=== PATIENT | female | born 1955 | race Caucasian/White ===

== ENCOUNTER → 2023-01-14 | Outpatient (CLI) | payer MEDICARE ==
[2023-01-14 08:43] LABS: BASO % 0.7 % (0.0-1.0); EOS # 0.1 10^3/uL (0.0-0.5); EOS % 1.9 % (0.0-3.0); HEMATOCRIT 36.8 % (36.0-47.0); HEMOGLOBIN 11.6 g/dl (12.0-15.5); LYMPH # 1.1 10^3/uL (1.5-5.0); LYMPH % 18.5 % (24.0-44.0); MEAN CORPUSCULAR HEMOGLOBIN 28.9 pg (27.0-33.0); MEAN CORPUSCULAR HGB CONC 31.5 g/dl (32.0-36.5); MEAN CORPUSCULAR VOLUME 91.8 fl (80.0-96.0); MONO # 0.7 10^3/uL (0.0-0.8); MONO % 11.6 % (2.0-8.0); NEUTROPHILS # 3.8 10^3/uL (1.5-8.5); NEUTROPHILS % 66.3 % (36.0-66.0); PLATELET COUNT, AUTOMATED 172 10^3/uL (150-450); RED BLOOD COUNT 4.01 10^6/uL (4.00-5.40); WHITE BLOOD COUNT 5.8 10^3/uL (4.0-10.0)
[2023-01-14 09:02] LABS: ALBUMIN 3.6 G/DL (3.2-5.2); ALKALINE PHOSPHATASE 197 U/L (46-116); ALT/SGPT 80 U/L (7.0-40); AST/SGOT 43 U/L (<34); BILIRUBIN,TOTAL 0.3 MG/DL (0.3-1.2); BLOOD UREA NITROGEN 11 MG/DL (9-23); CARBON DIOXIDE LEVEL 25 MMOL/L (20-31); CHLORIDE LEVEL 107 MMOL/L (98-107); CREATININE FOR GFR 0.71 MG/DL (0.55-1.30); GLOMERULAR FILTRATION RATE > 60.0 (>45); GLUCOSE, FASTING 121 MG/DL (74-106); POTASSIUM SERUM 4.7 MMOL/L (3.5-5.1); SODIUM LEVEL 138 MMOL/L (136-145); TOTAL PROTEIN 6.5 G/DL (5.7-8.2)
== END ==
LOC: M LAB 07:36
DX: C25.9 Malignant neoplasm of pancreas, unspecified (principal)

== ENCOUNTER 2023-01-28 08:00 | Outpatient (CLI) | payer MEDICARE ==
[~2023-01-28] VITALS: Ht 165.1 cm; Wt 77.3 kg
[~2023-01-28 08:00] MED LIST: SODIUM CHLORIDE 0.9% INJ 10 ML SYR IV PRN
[2023-01-28 08:22] VITALS: BP 170/91
[2023-01-28 08:28] LABS: HEMATOCRIT 31.8 % (36.0-47.0); HEMOGLOBIN 10.3 g/dl (12.0-15.5); MEAN CORPUSCULAR HEMOGLOBIN 29.1 pg (27.0-33.0); MEAN CORPUSCULAR HGB CONC 32.4 g/dl (32.0-36.5); MEAN CORPUSCULAR VOLUME 89.8 fl (80.0-96.0); PLATELET COUNT, AUTOMATED 150 10^3/uL (150-450); RED BLOOD COUNT 3.54 10^6/uL (4.00-5.40); WHITE BLOOD COUNT 2.7 10^3/uL (4.0-10.0)
[2023-01-28] MEDS ORDERED: SODIUM CHLORIDE 0.9% INJ 10 ML SYR IV SCH (09:00)
[2023-01-28 09:05] LABS: ALBUMIN 3.4 G/DL (3.2-5.2); ALKALINE PHOSPHATASE 175 U/L (46-116); ALT/SGPT 57 U/L (7.0-40); AST/SGOT 31 U/L (<34); BILIRUBIN,TOTAL 0.4 MG/DL (0.3-1.2); BLOOD UREA NITROGEN 10 MG/DL (9-23); CALCIUM LEVEL 8.7 MG/DL (8.3-10.6); CARBON DIOXIDE LEVEL 24 MMOL/L (20-31); CHLORIDE LEVEL 107 MMOL/L (98-107); CREATININE FOR GFR 0.64 MG/DL (0.55-1.30); GLOMERULAR FILTRATION RATE > 60.0 (>45); GLUCOSE, FASTING 118 MG/DL (74-106); SODIUM LEVEL 140 MMOL/L (136-145); TOTAL PROTEIN 5.9 G/DL (5.7-8.2)
[2023-01-28 14:30] LABS: BASO % 1.1 % (0.0-1.0); EOS # 0.1 10^3/uL (0.0-0.5); EOS % 2.7 % (0.0-3.0); LYMPH # 0.5 10^3/uL (1.5-5.0); LYMPH % 19.8 % (24.0-44.0); MONO # 0.5 10^3/uL (0.0-0.8); MONO % 17.9 % (2.0-8.0); NEUTROPHILS # 1.5 10^3/uL (1.5-8.5); NEUTROPHILS % 58.1 % (36.0-66.0)
== END 2023-01-28 08:20 | disposition home or self-care (01) ==
LOC: M INFU 08:00
PROVIDERS: ATTEND Physician Assistant
DX: C25.9 Malignant neoplasm of pancreas, unspecified (principal)

== ENCOUNTER 2023-02-01 07:15 | Outpatient (CLI) | payer MEDICARE ==
[~2023-02-01] VITALS: Ht 157.5 cm; Wt 80.0 kg
[2023-02-01 07:15] VITALS: BP 157/88
[2023-02-01] MEDS ORDERED: FILGRASTIM-SNDZ 300MCG 0.5ML SYR (ZARXIO)**SC ADMINISTRATION ONLY SC ONE (07:30)
== END 2023-02-01 07:40 | disposition home or self-care (01) ==
LOC: M INFU 07:15
PROVIDERS: ATTEND Physician Assistant
DX: C25.9 Malignant neoplasm of pancreas, unspecified (principal); D70.8 Other neutropenia
CPT/HCPCS: 96372; Q5101

== ENCOUNTER 2023-02-08 07:35 | Outpatient (CLI) | payer MEDICARE ==
[~2023-02-08] VITALS: Ht 152.4 cm; Wt 77.3 kg
[2023-02-08 07:35] VITALS: BP 142/80
[~2023-02-08 07:35] MED LIST changes: -SODIUM CHLORIDE 0.9% INJ 10 ML SYR IV PRN; +SODIUM CHLORIDE 0.9% INJ 10 ML SYR XX ONE
[2023-02-08 08:03] LABS: HEMOGLOBIN 10.9 g/dl (12.0-15.5); MEAN CORPUSCULAR HEMOGLOBIN 28.5 pg (27.0-33.0); MEAN CORPUSCULAR HGB CONC 32.1 g/dl (32.0-36.5); MEAN CORPUSCULAR VOLUME 88.8 fl (80.0-96.0); PLATELET COUNT, AUTOMATED 147 10^3/uL (150-450); RED BLOOD COUNT 3.83 10^6/uL (4.00-5.40); WHITE BLOOD COUNT 3.5 10^3/uL (4.0-10.0)
[2023-02-08 08:24] LABS: ALBUMIN 3.5 G/DL (3.2-5.2); ALKALINE PHOSPHATASE 185 U/L (46-116); ALT/SGPT 70 U/L (7.0-40); AST/SGOT 40 U/L (<34); BILIRUBIN,TOTAL 0.5 MG/DL (0.3-1.2); BLOOD UREA NITROGEN 12 MG/DL (9-23); CALCIUM LEVEL 9.2 MG/DL (8.3-10.6); CARBON DIOXIDE LEVEL 25 MMOL/L (20-31); CHLORIDE LEVEL 106 MMOL/L (98-107); CREATININE FOR GFR 0.68 MG/DL (0.55-1.30); GLOMERULAR FILTRATION RATE > 60.0 (>45); GLUCOSE, FASTING 126 MG/DL (74-106); POTASSIUM SERUM 4.1 MMOL/L (3.5-5.1); SODIUM LEVEL 138 MMOL/L (136-145)
[2023-02-08 09:14] LABS: CA19-9 TUMOR MARKER,CARBOHYDRA 6521.5 U/ML (<35.0)
[2023-02-08 10:35] LABS: BASO % 0.6 % (0.0-1.0); EOS # 0.1 10^3/uL (0.0-0.5); EOS % 1.4 % (0.0-3.0); LYMPH # 0.6 10^3/uL (1.5-5.0); LYMPH % 16.1 % (24.0-44.0); MONO # 0.6 10^3/uL (0.0-0.8); MONO % 17.6 % (2.0-8.0); NEUTROPHILS # 2.1 10^3/uL (1.5-8.5); NEUTROPHILS % 60.3 % (36.0-66.0)
== END 2023-02-08 07:40 | disposition home or self-care (01) ==
LOC: M INFU 07:35
PROVIDERS: ATTEND Physician Assistant
DX: C25.9 Malignant neoplasm of pancreas, unspecified (principal)

== ENCOUNTER 2023-03-01 08:13 | Outpatient (CLI) | payer MEDICARE ==
[~2023-03-01] VITALS: Ht 147.3 cm; Wt 80.0 kg
[~2023-03-01 08:13] MED LIST changes: +FILGRASTIM-SNDZ 300MCG 0.5ML SYR (ZARXIO)**SC ADMINISTRATION ONLY SC ONE; +SODIUM CHLORIDE 0.9% INJ 10 ML SYR IV PRN; -SODIUM CHLORIDE 0.9% INJ 10 ML SYR XX ONE
[2023-03-01 09:00] VITALS: BP 187/99; O2SAT 98
[2023-03-01] MEDS ORDERED: SODIUM CHLORIDE 0.9% INJ 10 ML SYR IV SCH (09:00)
[2023-03-01 09:14] LABS: HEMATOCRIT 33.8 % (36.0-47.0); HEMOGLOBIN 10.5 g/dl (12.0-15.5); MEAN CORPUSCULAR HEMOGLOBIN 27.9 pg (27.0-33.0); MEAN CORPUSCULAR HGB CONC 31.1 g/dl (32.0-36.5); MEAN CORPUSCULAR VOLUME 89.7 fl (80.0-96.0); PLATELET COUNT, AUTOMATED 143 10^3/uL (150-450); RED BLOOD COUNT 3.77 10^6/uL (4.00-5.40); WHITE BLOOD COUNT 1.9 10^3/uL (4.0-10.0)
[2023-03-01 09:33] LABS: ALBUMIN 3.5 G/DL (3.2-5.2); ALKALINE PHOSPHATASE 181 U/L (46-116); ALT/SGPT 40 U/L (7.0-40); AST/SGOT 33 U/L (<34); BILIRUBIN,TOTAL 0.4 MG/DL (0.3-1.2); BLOOD UREA NITROGEN 10 MG/DL (9-23); CALCIUM LEVEL 8.7 MG/DL (8.3-10.6); CARBON DIOXIDE LEVEL 26 MMOL/L (20-31); CHLORIDE LEVEL 108 MMOL/L (98-107); CREATININE FOR GFR 0.64 MG/DL (0.55-1.30); GLOMERULAR FILTRATION RATE > 60.0 (>45); GLUCOSE, FASTING 114 MG/DL (74-106); SODIUM LEVEL 140 MMOL/L (136-145); TOTAL PROTEIN 5.9 G/DL (5.7-8.2)
[2023-03-01 10:26] LABS: CA19-9 TUMOR MARKER,CARBOHYDRA 5856.2 U/ML (<35.0)
[2023-03-01 15:41] LABS: BASO % 1.1 % (0.0-1.0); EOS % 2.2 % (0.0-3.0); LYMPH % 24.9 % (24.0-44.0); MONO % 24.3 % (2.0-8.0)
[2023-03-01 15:42] LABS: LYMPH # 0.5 10^3/uL (1.5-5.0); MONO # 0.5 10^3/uL (0.0-0.8); NEUTROPHILS # 0.9 10^3/uL (1.5-8.5)
== END 2023-03-01 09:00 ==
LOC: M INFU 08:13
DX: C25.9 Malignant neoplasm of pancreas, unspecified (principal)

== ENCOUNTER 2023-03-08 08:15 | Outpatient (CLI) | payer MEDICARE ==
[~2023-03-08] VITALS: Ht 152.4 cm; Wt 77.3 kg
[2023-03-08 08:15] VITALS: BP 156/74; O2SAT 99
[~2023-03-08 08:15] MED LIST changes: -SODIUM CHLORIDE 0.9% INJ 10 ML SYR IV PRN; +SODIUM CHLORIDE 0.9% INJ 10 ML SYR XX ONE
== END 2023-03-08 08:35 | disposition home or self-care (01) ==
LOC: M INFU 08:15
PROVIDERS: ATTEND Physician Assistant
DX: C25.9 Malignant neoplasm of pancreas, unspecified (principal)
CPT/HCPCS: 96372; Q5101

== ENCOUNTER 2023-03-11 07:33 | Outpatient (CLI) | payer MEDICARE ==
[~2023-03-11] VITALS: Ht 152.4 cm; Wt 80.0 kg
[~2023-03-11 07:33] MED LIST changes: -SODIUM CHLORIDE 0.9% INJ 10 ML SYR XX ONE
[2023-03-11 07:35] VITALS: BP 136/82; O2SAT 98
== END 2023-03-11 07:50 ==
LOC: M INFU 07:33
DX: C25.9 Malignant neoplasm of pancreas, unspecified (principal)
CPT/HCPCS: 96372; Q5101

== ENCOUNTER 2023-03-12 14:12 | Outpatient (CLI) | payer MEDICARE ==
[~2023-03-12] VITALS: Ht 153 cm; Wt 80.0 kg
[2023-03-12 14:21] VITALS: BP 158/88; O2SAT 98
== END 2023-03-12 14:20 | disposition home or self-care (01) ==
LOC: M INFU 14:12
DX: C25.9 Malignant neoplasm of pancreas, unspecified (principal)
CPT/HCPCS: 96372; Q5101

== ENCOUNTER → 2023-03-15 | Outpatient (CLI) | payer MEDICARE ==
[~2023-03-15] VITALS: Ht 152.4 cm; Wt 80.0 kg
[~2023-03-15] MED LIST changes: -FILGRASTIM-SNDZ 300MCG 0.5ML SYR (ZARXIO)**SC ADMINISTRATION ONLY SC ONE; +SODIUM CHLORIDE 0.9% INJ 10 ML SYR IV PRN; +SODIUM CHLORIDE 0.9% INJ 10 ML SYR IV SCH
[2023-03-15 08:00] VITALS: BP 128/88; O2SAT 97
[2023-03-15 08:52] LABS: HEMOGLOBIN 10.6 g/dl (12.0-15.5); MEAN CORPUSCULAR HEMOGLOBIN 28.3 pg (27.0-33.0); MEAN CORPUSCULAR HGB CONC 32.1 g/dl (32.0-36.5); MEAN CORPUSCULAR VOLUME 88.2 fl (80.0-96.0); PLATELET COUNT, AUTOMATED 100 10^3/uL (150-450); RED BLOOD COUNT 3.74 10^6/uL (4.00-5.40); WHITE BLOOD COUNT 3.3 10^3/uL (4.0-10.0)
[2023-03-15 09:10] LABS: ALBUMIN 3.6 G/DL (3.2-5.2); ALKALINE PHOSPHATASE 215 U/L (46-116); ALT/SGPT 65 U/L (7.0-40); AST/SGOT 43 U/L (<34); BILIRUBIN,TOTAL 0.4 MG/DL (0.3-1.2); BLOOD UREA NITROGEN 10 MG/DL (9-23); CALCIUM LEVEL 9.8 MG/DL (8.3-10.6); CARBON DIOXIDE LEVEL 26 MMOL/L (20-31); CHLORIDE LEVEL 106 MMOL/L (98-107); CREATININE FOR GFR 0.54 MG/DL (0.55-1.30); GLOMERULAR FILTRATION RATE > 60.0 (>45); GLUCOSE, FASTING 122 MG/DL (74-106); SODIUM LEVEL 140 MMOL/L (136-145); TOTAL PROTEIN 6.1 G/DL (5.7-8.2)
[2023-03-15 10:00] LABS: CA19-9 TUMOR MARKER,CARBOHYDRA 5880.9 U/ML (<35.0)
[2023-03-15 16:46] LABS: BASO % 1.2 % (0.0-1.0); EOS % 1.2 % (0.0-3.0); LYMPH # 0.7 10^3/uL (1.5-5.0); LYMPH % 20.2 % (24.0-44.0); MONO # 0.6 10^3/uL (0.0-0.8); MONO % 18.4 % (2.0-8.0); NEUTROPHILS # 1.9 10^3/uL (1.5-8.5); NEUTROPHILS % 56.7 % (36.0-66.0)
== END ==
LOC: M INFU 08:00
DX: C25.9 Malignant neoplasm of pancreas, unspecified (principal)

== ENCOUNTER → 2023-03-21 | Outpatient (CLI) | payer MEDICARE ==
[~2023-03-21] VITALS: Ht 154.9 cm; Wt 80.0 kg
[~2023-03-21] MED LIST changes: +FILGRASTIM-SNDZ 300MCG 0.5ML SYR (ZARXIO)**SC ADMINISTRATION ONLY SC ONE; -SODIUM CHLORIDE 0.9% INJ 10 ML SYR IV PRN; -SODIUM CHLORIDE 0.9% INJ 10 ML SYR IV SCH
[2023-03-21 15:26] VITALS: BP 169/87; O2SAT 97
== END ==
LOC: M INFU 15:07
PROVIDERS: ATTEND Physician Assistant
DX: C25.9 Malignant neoplasm of pancreas, unspecified (principal)
CPT/HCPCS: 96372; Q5101

== ENCOUNTER 2023-03-28 08:30 | Outpatient (CLI) | payer MEDICARE ==
[~2023-03-28] VITALS: Ht 152.4 cm; Wt 80.0 kg
[2023-03-28 08:29] VITALS: BP 146/84; O2SAT 97
[~2023-03-28 08:30] MED LIST changes: +SODIUM CHLORIDE 0.9% INJ 10 ML SYR IV PRN
[2023-03-28] MEDS ORDERED: SODIUM CHLORIDE 0.9% INJ 10 ML SYR IV SCH (09:00)
== END 2023-03-28 08:35 | disposition home or self-care (01) ==
LOC: M INFU 08:30
PROVIDERS: ATTEND Physician Assistant
DX: C25.9 Malignant neoplasm of pancreas, unspecified (principal)
CPT/HCPCS: 96372; Q5101

== ENCOUNTER 2023-04-01 09:50 | Outpatient (CLI) | payer MEDICARE ==
[~2023-04-01] VITALS: Ht 152.4 cm; Wt 77.3 kg
[~2023-04-01 09:50] MED LIST changes: -FILGRASTIM-SNDZ 300MCG 0.5ML SYR (ZARXIO)**SC ADMINISTRATION ONLY SC ONE; +SODIUM CHLORIDE 0.9% INJ 10 ML SYR IV SCH
[2023-04-01 10:10] VITALS: BP 158/89; O2SAT 98
[2023-04-01 10:49] LABS: HEMATOCRIT 31.2 % (36.0-47.0); HEMOGLOBIN 9.8 g/dl (12.0-15.5); MEAN CORPUSCULAR HEMOGLOBIN 28.2 pg (27.0-33.0); MEAN CORPUSCULAR HGB CONC 31.4 g/dl (32.0-36.5); MEAN CORPUSCULAR VOLUME 89.7 fl (80.0-96.0); PLATELET COUNT, AUTOMATED 131 10^3/uL (150-450); RED BLOOD COUNT 3.48 10^6/uL (4.00-5.40); WHITE BLOOD COUNT 2.1 10^3/uL (4.0-10.0)
[2023-04-01 11:16] LABS: ALBUMIN 3.4 G/DL (3.2-5.2); ALKALINE PHOSPHATASE 205 U/L (46-116); ALT/SGPT 54 U/L (7.0-40); AST/SGOT 36 U/L (<34); BILIRUBIN,TOTAL 0.4 MG/DL (0.3-1.2); BLOOD UREA NITROGEN 12 MG/DL (9-23); CARBON DIOXIDE LEVEL 26 MMOL/L (20-31); CHLORIDE LEVEL 109 MMOL/L (98-107); CREATININE FOR GFR 0.62 MG/DL (0.55-1.30); GLOMERULAR FILTRATION RATE > 60.0 (>45); GLUCOSE, FASTING 146 MG/DL (74-106); POTASSIUM SERUM 3.4 MMOL/L (3.5-5.1); SODIUM LEVEL 144 MMOL/L (136-145); TOTAL PROTEIN 5.8 G/DL (5.7-8.2)
[2023-04-01 12:14] LABS: CA19-9 TUMOR MARKER,CARBOHYDRA 4202.6 U/ML (<35.0)
[2023-04-01 15:24] LABS: BASO % 1.5 % (0.0-1.0); EOS # 0.1 10^3/uL (0.0-0.5); EOS % 3.6 % (0.0-3.0); LYMPH # 0.4 10^3/uL (1.5-5.0); LYMPH % 21.1 % (24.0-44.0); MONO # 0.4 10^3/uL (0.0-0.8); MONO % 21.6 % (2.0-8.0); NEUTROPHILS % 50.7 % (36.0-66.0)
[2023-04-01 16:42] LABS: PLATELET ESTIMATE DECREASED (NORMAL)
== END 2023-04-01 10:30 ==
LOC: M INFU 09:50
PROVIDERS: ATTEND Internal Medicine
DX: C25.9 Malignant neoplasm of pancreas, unspecified (principal)

== ENCOUNTER 2023-04-11 08:00 | Outpatient (CLI) | payer MEDICARE ==
[~2023-04-11] VITALS: Ht 165.1 cm; Wt 77.1 kg
[~2023-04-11 08:00] MED LIST changes: +CURRENT HEIGHT AND WEIGHT NEEDED ON PATIENT XX SCH; +FILGRASTIM-SNDZ 300MCG 0.5ML SYR (ZARXIO)**SC ADMINISTRATION ONLY SC ONE; -SODIUM CHLORIDE 0.9% INJ 10 ML SYR IV PRN; -SODIUM CHLORIDE 0.9% INJ 10 ML SYR IV SCH
[2023-04-11 08:10] VITALS: BP 131/68; O2SAT 98
[2023-04-11] MEDS ORDERED: FILGRASTIM-SNDZ 300MCG 0.5ML SYR (ZARXIO)**SC ADMINISTRATION ONLY SC ONE (08:30)
== END 2023-04-11 08:30 ==
LOC: M INFU 08:00
PROVIDERS: ATTEND Nurse Practitioner Adult Health
DX: C25.9 Malignant neoplasm of pancreas, unspecified (principal)
CPT/HCPCS: 96372; Q5101

== ENCOUNTER → 2023-04-12 | Outpatient (CLI) | payer MEDICARE ==
[~2023-04-12] VITALS: Ht 152.4 cm; Wt 77.3 kg
[~2023-04-12] MED LIST changes: -CURRENT HEIGHT AND WEIGHT NEEDED ON PATIENT XX SCH
[2023-04-12 07:00] VITALS: BP 140/98; O2SAT 98
== END ==
LOC: M INFU 06:55
PROVIDERS: ATTEND Nurse Practitioner Adult Health
DX: C25.9 Malignant neoplasm of pancreas, unspecified (principal)
CPT/HCPCS: 96372; Q5101

== ENCOUNTER → 2023-04-15 | Outpatient (CLI) | payer MEDICARE ==
[2023-04-15 08:52] LABS: HEMATOCRIT 34.8 % (36.0-47.0); MEAN CORPUSCULAR HEMOGLOBIN 28.5 pg (27.0-33.0); MEAN CORPUSCULAR HGB CONC 31.6 g/dl (32.0-36.5); MEAN CORPUSCULAR VOLUME 90.2 fl (80.0-96.0); PLATELET COUNT, AUTOMATED 166 10^3/uL (150-450); RED BLOOD COUNT 3.86 10^6/uL (4.00-5.40); WHITE BLOOD COUNT 2.4 10^3/uL (4.0-10.0)
[2023-04-15 09:07] LABS: ALBUMIN 3.8 G/DL (3.2-5.2); ALKALINE PHOSPHATASE 251 U/L (46-116); ALT/SGPT 85 U/L (7.0-40); AST/SGOT 69 U/L (<34); BILIRUBIN,TOTAL 0.3 MG/DL (0.3-1.2); BLOOD UREA NITROGEN 9 MG/DL (9-23); CALCIUM LEVEL 9.5 MG/DL (8.3-10.6); CARBON DIOXIDE LEVEL 26 MMOL/L (20-31); CHLORIDE LEVEL 109 MMOL/L (98-107); GLOMERULAR FILTRATION RATE > 60.0 (>45); GLUCOSE, FASTING 124 MG/DL (74-106); POTASSIUM SERUM 4.4 MMOL/L (3.5-5.1); SODIUM LEVEL 144 MMOL/L (136-145); TOTAL PROTEIN 6.5 G/DL (5.7-8.2)
[2023-04-15 09:35] LABS: ATYPICAL LYMPH 7 % (0-5); EOSINOPHILS 1 % (0-3); LYMPHOCYTES 27 % (16-44); MONOCYTES 34 % (0-5); NEUTROPHILS 31 % (28-66)
[2023-04-15 09:36] LABS: PLATELET ESTIMATE NORMAL (NORMAL); POLYCHROMASIA 1+
[2023-04-15 17:19] LABS: IRON (FE) 52 UG/DL (50-170); PERCENT SATURATION 13.4 % (13.2-45.0); TOTAL IRON BINDING CAPACITY 387 UG/DL (250-425)
[2023-04-15 17:20] LABS: FERRITIN 261.7 NG/ML (7.3-270.7)
[2023-04-15 17:21] LABS: FOLATE > 24.00 NG/ML (>5.4); VITAMIN B12 LEVEL 770 PG/ML (211-911)
== END ==
LOC: M LAB 08:14
PROVIDERS: ATTEND Internal Medicine
DX: C25.9 Malignant neoplasm of pancreas, unspecified (principal)

== ENCOUNTER 2023-04-19 15:58 | Outpatient (CLI) | payer MEDICARE ==
[~2023-04-19] VITALS: Ht 152.4 cm; Wt 80.0 kg
[2023-04-19] MEDS ORDERED: FILGRASTIM-SNDZ 300MCG 0.5ML SYR (ZARXIO)**SC ADMINISTRATION ONLY SC ONE (16:00)
[2023-04-19 16:05] VITALS: BP 148/50; O2SAT 99
[2023-04-19 16:50] VITALS: BP 138/68; O2SAT 99
== END 2023-04-19 16:50 | disposition home or self-care (01) ==
LOC: M INFU 15:58
PROVIDERS: ATTEND Physician Assistant
DX: C25.9 Malignant neoplasm of pancreas, unspecified (principal)
CPT/HCPCS: 96372; Q5101

== ENCOUNTER → 2023-04-22 | Outpatient (CLI) | payer MEDICARE ==
[2023-04-22 09:08] LABS: BASO # 0.1 10^3/uL (0.0-0.2); BASO % 0.6 % (0.0-1.0); EOS # 0.1 10^3/uL (0.0-0.5); EOS % 1.3 % (0.0-3.0); HEMATOCRIT 34.6 % (36.0-47.0); HEMOGLOBIN 10.8 g/dl (12.0-15.5); LYMPH # 0.8 10^3/uL (1.5-5.0); LYMPH % 8.2 % (24.0-44.0); MEAN CORPUSCULAR HEMOGLOBIN 27.8 pg (27.0-33.0); MEAN CORPUSCULAR HGB CONC 31.2 g/dl (32.0-36.5); MEAN CORPUSCULAR VOLUME 88.9 fl (80.0-96.0); MONO # 0.6 10^3/uL (0.0-0.8); MONO % 6.2 % (2.0-8.0); NEUTROPHILS # 7.7 10^3/uL (1.5-8.5); NEUTROPHILS % 81.6 % (36.0-66.0); PLATELET COUNT, AUTOMATED 150 10^3/uL (150-450); RED BLOOD COUNT 3.89 10^6/uL (4.00-5.40); WHITE BLOOD COUNT 9.4 10^3/uL (4.0-10.0)
[2023-04-22 09:36] LABS: ALBUMIN 3.5 G/DL (3.2-5.2); ALKALINE PHOSPHATASE 225 U/L (46-116); ALT/SGPT 38 U/L (7.0-40); AST/SGOT 33 U/L (<34); BILIRUBIN,TOTAL 0.4 MG/DL (0.3-1.2); BLOOD UREA NITROGEN 13 MG/DL (9-23); CALCIUM LEVEL 9.2 MG/DL (8.3-10.6); CARBON DIOXIDE LEVEL 26 MMOL/L (20-31); CHLORIDE LEVEL 106 MMOL/L (98-107); CREATININE FOR GFR 0.56 MG/DL (0.55-1.30); GLOMERULAR FILTRATION RATE > 60.0 (>45); GLUCOSE, FASTING 119 MG/DL (74-106); POTASSIUM SERUM 4.1 MMOL/L (3.5-5.1); SODIUM LEVEL 140 MMOL/L (136-145); TOTAL PROTEIN 6.5 G/DL (5.7-8.2)
== END ==
LOC: M LAB 08:46
PROVIDERS: ATTEND Internal Medicine
DX: C25.9 Malignant neoplasm of pancreas, unspecified (principal)

== ENCOUNTER 2023-05-06 07:55 | Outpatient (CLI) | payer MEDICARE ==
[~2023-05-06] VITALS: Ht 152.4 cm; Wt 75.0 kg
[2023-05-06 07:55] VITALS: BP 144/47; O2SAT 99
[2023-05-06 08:09] LABS: BASO % 0.5 % (0.0-1.0); EOS # 0.1 10^3/uL (0.0-0.5); EOS % 2.6 % (0.0-3.0); HEMATOCRIT 30.4 % (36.0-47.0); HEMOGLOBIN 9.7 g/dl (12.0-15.5); LYMPH # 0.5 10^3/uL (1.5-5.0); LYMPH % 25.5 % (24.0-44.0); MEAN CORPUSCULAR HEMOGLOBIN 27.9 pg (27.0-33.0); MEAN CORPUSCULAR HGB CONC 31.9 g/dl (32.0-36.5); MEAN CORPUSCULAR VOLUME 87.4 fl (80.0-96.0); MONO # 0.4 10^3/uL (0.0-0.8); MONO % 17.9 % (2.0-8.0); NEUTROPHILS # 1.1 10^3/uL (1.5-8.5); NEUTROPHILS % 53.5 % (36.0-66.0); PLATELET COUNT, AUTOMATED 129 10^3/uL (150-450); RED BLOOD COUNT 3.48 10^6/uL (4.00-5.40)
[2023-05-06 08:49] LABS: ALBUMIN 3.3 G/DL (3.2-5.2); ALKALINE PHOSPHATASE 239 U/L (46-116); ALT/SGPT 42 U/L (7.0-40); AST/SGOT 46 U/L (<34); BILIRUBIN,TOTAL 0.4 MG/DL (0.3-1.2); BLOOD UREA NITROGEN 10 MG/DL (9-23); CALCIUM LEVEL 8.9 MG/DL (8.3-10.6); CARBON DIOXIDE LEVEL 25 MMOL/L (20-31); CHLORIDE LEVEL 105 MMOL/L (98-107); CREATININE FOR GFR 0.52 MG/DL (0.55-1.30); GLOMERULAR FILTRATION RATE > 60.0 (>45); GLUCOSE, FASTING 114 MG/DL (74-106); SODIUM LEVEL 139 MMOL/L (136-145); TOTAL PROTEIN 6.1 G/DL (5.7-8.2)
[2023-05-06] MEDS ORDERED: SODIUM CHLORIDE 0.9% INJ 10 ML SYR IV SCH (09:00)
[2023-05-06 09:45] LABS: CA19-9 TUMOR MARKER,CARBOHYDRA 5259.2 U/ML (<35.0)
== END 2023-05-06 08:20 | disposition home or self-care (01) ==
LOC: M INFU 07:55
PROVIDERS: ATTEND Physician Assistant
DX: C25.9 Malignant neoplasm of pancreas, unspecified (principal)

== ENCOUNTER 2023-05-10 07:54 | Outpatient (CLI) | payer MEDICARE ==
[~2023-05-10] VITALS: Ht 152.4 cm; Wt 77.2 kg
[2023-05-10 08:00] VITALS: BP 159/83; O2SAT 96
[2023-05-10] MEDS ORDERED: FILGRASTIM-SNDZ 300MCG 0.5ML SYR (ZARXIO)**SC ADMINISTRATION ONLY SC ONE (08:30)
== END 2023-05-10 08:35 ==
LOC: M INFU 07:54
PROVIDERS: ATTEND Physician Assistant
DX: C25.9 Malignant neoplasm of pancreas, unspecified (principal)
CPT/HCPCS: 96372; Q5101

== ENCOUNTER 2023-05-13 07:05 | Outpatient (CLI) | payer MEDICARE ==
[~2023-05-13] VITALS: Ht 160 cm; Wt 80.0 kg
[2023-05-13 07:14] VITALS: BP 155/85; O2SAT 99
== END 2023-05-13 07:12 | disposition home or self-care (01) ==
LOC: M INFU 07:05
PROVIDERS: ATTEND Physician Assistant
DX: C25.9 Malignant neoplasm of pancreas, unspecified (principal)
CPT/HCPCS: 96372; Q5101

== ENCOUNTER 2023-05-17 07:30 | Outpatient (CLI) | payer MEDICARE ==
[~2023-05-17] VITALS: Ht 152.4 cm; Wt 76.8 kg
[2023-05-17 07:44] VITALS: BP 132/86; O2SAT 97
[2023-05-17 07:55] LABS: HEMATOCRIT 33.5 % (36.0-47.0); HEMOGLOBIN 10.5 g/dl (12.0-15.5); MEAN CORPUSCULAR HEMOGLOBIN 27.7 pg (27.0-33.0); MEAN CORPUSCULAR HGB CONC 31.3 g/dl (32.0-36.5); MEAN CORPUSCULAR VOLUME 88.4 fl (80.0-96.0); RED BLOOD COUNT 3.79 10^6/uL (4.00-5.40); WHITE BLOOD COUNT 2.3 10^3/uL (4.0-10.0)
[2023-05-17 08:16] LABS: PLATELET COUNT, AUTOMATED 95 10^3/uL (150-450)
[2023-05-17 08:18] LABS: ALBUMIN 3.3 G/DL (3.2-5.2); ALKALINE PHOSPHATASE 254 U/L (46-116); ALT/SGPT 69 U/L (7.0-40); AST/SGOT 41 U/L (<34); BILIRUBIN,TOTAL 0.5 MG/DL (0.3-1.2); BLOOD UREA NITROGEN 12 MG/DL (9-23); CALCIUM LEVEL 8.9 MG/DL (8.3-10.6); CARBON DIOXIDE LEVEL 26 MMOL/L (20-31); CHLORIDE LEVEL 106 MMOL/L (98-107); CREATININE FOR GFR 0.52 MG/DL (0.55-1.30); GLOMERULAR FILTRATION RATE > 60.0 (>45); GLUCOSE, FASTING 134 MG/DL (74-106); POTASSIUM SERUM 3.9 MMOL/L (3.5-5.1); SODIUM LEVEL 140 MMOL/L (136-145); TOTAL PROTEIN 6.2 G/DL (5.7-8.2)
[2023-05-17] MEDS ORDERED: SODIUM CHLORIDE 0.9% INJ 10 ML SYR IV SCH (09:00)
[2023-05-17 09:13] LABS: CA19-9 TUMOR MARKER,CARBOHYDRA 5936.1 U/ML (<35.0)
[2023-05-17 15:25] LABS: BASO % 1.2 % (0.0-1.0); EOS % 0.8 % (0.0-3.0); LYMPH # 0.5 10^3/uL (1.5-5.0); LYMPH % 20.7 % (24.0-44.0); MONO # 0.4 10^3/uL (0.0-0.8); MONO % 17.8 % (2.0-8.0); NEUTROPHILS # 1.4 10^3/uL (1.5-8.5); NEUTROPHILS % 57.8 % (36.0-66.0)
== END 2023-05-17 07:50 | disposition home or self-care (01) ==
LOC: M INFU 07:30
PROVIDERS: ATTEND Physician Assistant
DX: C25.9 Malignant neoplasm of pancreas, unspecified (principal)
CPT/HCPCS: 36591; 80053; 85027; 85049; 85055; 86301; 96372; Q5101

== ENCOUNTER 2023-05-24 10:30 | Outpatient (CLI) | payer MEDICARE ==
[~2023-05-24] VITALS: Ht 152.4 cm; Wt 75.0 kg
[2023-05-24 10:30] VITALS: BP 159/80; O2SAT 97
== END 2023-05-24 11:00 ==
LOC: M INFU 10:30
PROVIDERS: ATTEND Physician Assistant
DX: C25.9 Malignant neoplasm of pancreas, unspecified (principal)
CPT/HCPCS: 96372; Q5101

== ENCOUNTER 2023-05-27 11:15 | Outpatient (CLI) | payer MEDICARE ==
[~2023-05-27] VITALS: Ht 152.4 cm; Wt 76.8 kg
[~2023-05-27 11:15] MED LIST changes: +CURRENT HEIGHT AND WEIGHT NEEDED ON PATIENT XX SCH; -FILGRASTIM-SNDZ 300MCG 0.5ML SYR (ZARXIO)**SC ADMINISTRATION ONLY SC ONE
[2023-05-27 11:21] VITALS: BP 171/84; O2SAT 97
[2023-05-27] MEDS ORDERED: FILGRASTIM-SNDZ 300MCG 0.5ML SYR (ZARXIO)**SC ADMINISTRATION ONLY SC ONE (11:30)
== END 2023-05-27 11:22 ==
LOC: M INFU 11:15
PROVIDERS: ATTEND Physician Assistant
DX: C25.9 Malignant neoplasm of pancreas, unspecified (principal)
CPT/HCPCS: 96372; Q5101

== ENCOUNTER 2023-05-31 11:55 | Outpatient (CLI) | payer MEDICARE ==
[~2023-05-31] VITALS: Ht 152.4 cm; Wt 75.0 kg
[2023-05-31 11:55] VITALS: BP 141/82; O2SAT 99
[~2023-05-31 11:55] MED LIST changes: -CURRENT HEIGHT AND WEIGHT NEEDED ON PATIENT XX SCH; +FILGRASTIM-SNDZ 300MCG 0.5ML SYR (ZARXIO)**SC ADMINISTRATION ONLY SC SCH
== END 2023-05-31 12:20 | disposition home or self-care (01) ==
LOC: M INFU 11:55
PROVIDERS: ATTEND Physician Assistant
DX: C25.9 Malignant neoplasm of pancreas, unspecified (principal)
CPT/HCPCS: 96372; Q5101

== ENCOUNTER → 2023-06-03 | Outpatient (CLI) | payer MEDICARE ==
[2023-06-03 09:33] LABS: HEMATOCRIT 34.3 % (36.0-47.0); HEMOGLOBIN 10.6 g/dl (12.0-15.5); MEAN CORPUSCULAR HEMOGLOBIN 27.7 pg (27.0-33.0); MEAN CORPUSCULAR HGB CONC 30.9 g/dl (32.0-36.5); MEAN CORPUSCULAR VOLUME 89.8 fl (80.0-96.0); PLATELET COUNT, AUTOMATED 118 10^3/uL (150-450); RED BLOOD COUNT 3.82 10^6/uL (4.00-5.40); WHITE BLOOD COUNT 2.7 10^3/uL (4.0-10.0)
[2023-06-03 09:55] LABS: ANISOCYTOSIS 2+; ATYPICAL LYMPH 2 % (0-5); EOSINOPHILS 2 % (0-3); LYMPHOCYTES 28 % (16-44); MONOCYTES 10 % (0-5); NEUTROPHILS 58 % (28-66); PLATELET ESTIMATE DECREASED (NORMAL); POIKILOCYTOSIS 1+; POLYCHROMASIA 1+
[2023-06-03 09:57] LABS: ALBUMIN 3.2 G/DL (3.2-5.2); ALKALINE PHOSPHATASE 221 U/L (46-116); ALT/SGPT 69 U/L (7.0-40); AST/SGOT 41 U/L (<34); BILIRUBIN,TOTAL 0.3 MG/DL (0.3-1.2); BLOOD UREA NITROGEN 15 MG/DL (9-23); CALCIUM LEVEL 8.7 MG/DL (8.3-10.6); CARBON DIOXIDE LEVEL 26 MMOL/L (20-31); CHLORIDE LEVEL 107 MMOL/L (98-107); CREATININE FOR GFR 0.55 MG/DL (0.55-1.30); GLOMERULAR FILTRATION RATE > 60.0 (>45); GLUCOSE, FASTING 122 MG/DL (74-106); POTASSIUM SERUM 3.5 MMOL/L (3.5-5.1); SODIUM LEVEL 142 MMOL/L (136-145); TOTAL PROTEIN 5.9 G/DL (5.7-8.2)
== END ==
LOC: M LAB 08:31
PROVIDERS: ATTEND Internal Medicine
DX: C25.9 Malignant neoplasm of pancreas, unspecified (principal)

== ENCOUNTER 2023-06-14 09:50 | Outpatient (CLI) | payer MEDICARE ==
[~2023-06-14] VITALS: Ht 152.4 cm; Wt 77.2 kg
[2023-06-14 09:55] VITALS: BP 139/74; O2SAT 98
[2023-06-14] MEDS ORDERED: FILGRASTIM-SNDZ 300MCG 0.5ML SYR (ZARXIO)**SC ADMINISTRATION ONLY SC ONE (10:00)
[2023-06-14 10:40] VITALS: BP 128/68; O2SAT 98
== END 2023-06-14 10:40 | disposition home or self-care (01) ==
LOC: M INFU 09:50
PROVIDERS: ATTEND Nurse Practitioner Adult Health
DX: C25.9 Malignant neoplasm of pancreas, unspecified (principal)
CPT/HCPCS: 96372; Q5101

== ENCOUNTER 2023-06-17 08:30 | Outpatient (CLI) | payer MEDICARE ==
[~2023-06-17] VITALS: Ht 152.4 cm; Wt 77.2 kg
[2023-06-17 08:30] VITALS: BP 168/92; O2SAT 98
[2023-06-17] MEDS ORDERED: SODIUM CHLORIDE 0.9% INJ 10 ML SYR IV SCH (09:00)
[2023-06-17 09:14] LABS: HEMATOCRIT 31.4 % (36.0-47.0); HEMOGLOBIN 9.8 g/dl (12.0-15.5); MEAN CORPUSCULAR HEMOGLOBIN 28.2 pg (27.0-33.0); MEAN CORPUSCULAR HGB CONC 31.2 g/dl (32.0-36.5); MEAN CORPUSCULAR VOLUME 90.5 fl (80.0-96.0); PLATELET COUNT, AUTOMATED 100 10^3/uL (150-450); RED BLOOD COUNT 3.47 10^6/uL (4.00-5.40); WHITE BLOOD COUNT 3.1 10^3/uL (4.0-10.0)
[2023-06-17 09:33] LABS: ALBUMIN 3.2 G/DL (3.2-5.2); ALKALINE PHOSPHATASE 219 U/L (46-116); ALT/SGPT 64 U/L (7.0-40); AST/SGOT 37 U/L (<34); BILIRUBIN,TOTAL 0.4 MG/DL (0.3-1.2); BLOOD UREA NITROGEN 19 MG/DL (9-23); CALCIUM LEVEL 8.8 MG/DL (8.3-10.6); CARBON DIOXIDE LEVEL 26 MMOL/L (20-31); CHLORIDE LEVEL 110 MMOL/L (98-107); CREATININE FOR GFR 0.53 MG/DL (0.55-1.30); GLOMERULAR FILTRATION RATE > 60.0 (>45); GLUCOSE, FASTING 174 MG/DL (74-106); POTASSIUM SERUM 3.3 MMOL/L (3.5-5.1); SODIUM LEVEL 143 MMOL/L (136-145); TOTAL PROTEIN 5.8 G/DL (5.7-8.2)
[2023-06-17 10:27] LABS: CA19-9 TUMOR MARKER,CARBOHYDRA 5370.2 U/ML (<35.0)
[2023-06-17 16:36] LABS: BASO % 0.6 % (0.0-1.0); EOS % 0.6 % (0.0-3.0); LYMPH # 0.7 10^3/uL (1.5-5.0); LYMPH % 21.3 % (24.0-44.0); MONO # 0.6 10^3/uL (0.0-0.8); MONO % 19.4 % (2.0-8.0); NEUTROPHILS # 1.6 10^3/uL (1.5-8.5); NEUTROPHILS % 49.2 % (36.0-66.0)
== END 2023-06-17 09:00 | disposition home or self-care (01) ==
LOC: M INFU 08:30
PROVIDERS: ATTEND Nurse Practitioner Adult Health
DX: C25.9 Malignant neoplasm of pancreas, unspecified (principal)

== ENCOUNTER 2023-06-21 09:15 | Outpatient (CLI) | payer MEDICARE ==
[~2023-06-21] VITALS: Ht 152.4 cm; Wt 77.3 kg
[2023-06-21 09:15] VITALS: BP 160/70; O2SAT 99
[~2023-06-21 09:15] MED LIST changes: +FILGRASTIM-SNDZ 300MCG 0.5ML SYR (ZARXIO)**SC ADMINISTRATION ONLY SC ONE; -FILGRASTIM-SNDZ 300MCG 0.5ML SYR (ZARXIO)**SC ADMINISTRATION ONLY SC SCH
[2023-06-21 09:55] VITALS: BP 136/75; O2SAT 97
== END 2023-06-21 10:00 | disposition home or self-care (01) ==
LOC: M INFU 09:15
PROVIDERS: ATTEND Nurse Practitioner Adult Health
DX: C25.9 Malignant neoplasm of pancreas, unspecified (principal)
CPT/HCPCS: 96372; Q5101

== ENCOUNTER 2023-06-25 11:20 | Outpatient (CLI) | payer MEDICARE ==
[~2023-06-25] VITALS: Ht 152.4 cm; Wt 77.3 kg
[2023-06-25] MEDS ORDERED: FILGRASTIM-SNDZ 300MCG 0.5ML SYR (ZARXIO)**SC ADMINISTRATION ONLY SC ONE (11:30)
[2023-06-25 11:31] VITALS: BP 143/84; O2SAT 98
== END 2023-06-25 11:50 ==
LOC: M INFU 11:20
PROVIDERS: ATTEND Nurse Practitioner Adult Health
DX: C25.9 Malignant neoplasm of pancreas, unspecified (principal)
CPT/HCPCS: 96372; Q5101

== ENCOUNTER 2023-06-28 12:35 | Outpatient (CLI) | payer MEDICARE ==
[~2023-06-28] VITALS: Ht 152.4 cm; Wt 77.0 kg
[2023-06-28 12:35] VITALS: BP 144/80; O2SAT 99
== END 2023-06-28 13:00 | disposition home or self-care (01) ==
LOC: M INFU 12:35
PROVIDERS: ATTEND Nurse Practitioner Adult Health
DX: C25.9 Malignant neoplasm of pancreas, unspecified (principal)
CPT/HCPCS: 96372; Q5101

== ENCOUNTER 2023-07-01 07:55 | Outpatient (CLI) | payer MEDICARE ==
[~2023-07-01] VITALS: Ht 152.4 cm; Wt 77.0 kg
[2023-07-01] MEDS ORDERED: SODIUM CHLORIDE 0.9% INJ 10 ML SYR IV PRN (08:05)
[2023-07-01 08:21] VITALS: BP 145/75; O2SAT 98
[2023-07-01 08:43] LABS: HEMATOCRIT 29.2 % (36.0-47.0); HEMOGLOBIN 9.2 g/dl (12.0-15.5); MEAN CORPUSCULAR HEMOGLOBIN 28.8 pg (27.0-33.0); MEAN CORPUSCULAR HGB CONC 31.5 g/dl (32.0-36.5); MEAN CORPUSCULAR VOLUME 91.3 fl (80.0-96.0); PLATELET COUNT, AUTOMATED 114 10^3/uL (150-450); WHITE BLOOD COUNT 2.2 10^3/uL (4.0-10.0)
[2023-07-01] MEDS ORDERED: SODIUM CHLORIDE 0.9% INJ 10 ML SYR IV SCH (09:00)
[2023-07-01 09:05] LABS: ALKALINE PHOSPHATASE 227 U/L (46-116); ALT/SGPT 50 U/L (7.0-40); AST/SGOT 39 U/L (<34); BILIRUBIN,TOTAL 0.5 MG/DL (0.3-1.2); BLOOD UREA NITROGEN 8 MG/DL (9-23); CALCIUM LEVEL 8.4 MG/DL (8.3-10.6); CARBON DIOXIDE LEVEL 25 MMOL/L (20-31); CHLORIDE LEVEL 109 MMOL/L (98-107); CREATININE FOR GFR 0.46 MG/DL (0.55-1.30); GLOMERULAR FILTRATION RATE > 60.0 (>45); GLUCOSE, FASTING 126 MG/DL (74-106); POTASSIUM SERUM 3.3 MMOL/L (3.5-5.1); SODIUM LEVEL 143 MMOL/L (136-145); TOTAL PROTEIN 5.7 G/DL (5.7-8.2)
[2023-07-01 09:12] LABS: ATYPICAL LYMPH 5 % (0-5); EOSINOPHILS 2 % (0-3); LYMPHOCYTES 23 % (16-44); MONOCYTES 19 % (0-5); NEUTROPHILS 51 % (28-66); PLATELET ESTIMATE DECREASED (NORMAL)
[2023-07-01 09:13] LABS: POLYCHROMASIA 2+
[2023-07-01 09:14] LABS: MICROCYTOSIS 1+
== END 2023-07-01 08:30 ==
LOC: M INFU 07:55
PROVIDERS: ATTEND Nurse Practitioner Adult Health
DX: C25.9 Malignant neoplasm of pancreas, unspecified (principal)

== ENCOUNTER 2023-07-19 07:46 | Outpatient (CLI) | payer MEDICARE ==
[~2023-07-19] VITALS: Ht 152.4 cm; Wt 72.7 kg
[2023-07-19 07:50] VITALS: BP 132/72; O2SAT 99
[2023-07-19] MEDS ORDERED: FILGRASTIM-SNDZ 300MCG 0.5ML SYR (ZARXIO)**SC ADMINISTRATION ONLY SC ONE (08:00)
[2023-07-19] MEDS ORDERED: SODIUM CHLORIDE 0.9% INJ 10 ML SYR IV SCH (09:00)
== END 2023-07-19 08:05 ==
LOC: M INFU 07:46
PROVIDERS: ATTEND Nurse Practitioner Adult Health
DX: C25.9 Malignant neoplasm of pancreas, unspecified (principal)
CPT/HCPCS: 96372; Q5101

== ENCOUNTER → 2023-07-29 | Outpatient (CLI) | payer MEDICARE ==
[2023-07-29 09:26] LABS: BASO % 0.4 % (0.0-1.0); EOS % 0.6 % (0.0-3.0); HEMATOCRIT 31.1 % (36.0-47.0); HEMOGLOBIN 9.6 g/dl (12.0-15.5); LYMPH # 0.6 10^3/uL (1.5-5.0); LYMPH % 12.1 % (24.0-44.0); MEAN CORPUSCULAR HEMOGLOBIN 28.7 pg (27.0-33.0); MEAN CORPUSCULAR HGB CONC 30.9 g/dl (32.0-36.5); MEAN CORPUSCULAR VOLUME 93.1 fl (80.0-96.0); MONO # 0.4 10^3/uL (0.0-0.8); MONO % 7.7 % (2.0-8.0); NEUTROPHILS # 3.9 10^3/uL (1.5-8.5); NEUTROPHILS % 78.4 % (36.0-66.0); PLATELET COUNT, AUTOMATED 115 10^3/uL (150-450); RED BLOOD COUNT 3.34 10^6/uL (4.00-5.40)
[2023-07-29 09:47] LABS: ALBUMIN 3.2 G/DL (3.2-5.2); ALKALINE PHOSPHATASE 210 U/L (46-116); ALT/SGPT 45 U/L (7.0-40); AST/SGOT 61 U/L (<34); BLOOD UREA NITROGEN 9 MG/DL (9-23); CALCIUM LEVEL 9.2 MG/DL (8.3-10.6); CARBON DIOXIDE LEVEL 25 MMOL/L (20-31); CHLORIDE LEVEL 107 MMOL/L (98-107); CREATININE FOR GFR 0.48 MG/DL (0.55-1.30); GLOMERULAR FILTRATION RATE > 60.0 (>45); GLUCOSE, FASTING 132 MG/DL (74-106); POTASSIUM SERUM 3.7 MMOL/L (3.5-5.1); SODIUM LEVEL 143 MMOL/L (136-145); TOTAL PROTEIN 6.7 G/DL (5.7-8.2)
== END ==
LOC: M LAB 08:13
PROVIDERS: ATTEND Internal Medicine
DX: C25.9 Malignant neoplasm of pancreas, unspecified (principal)

== ENCOUNTER 2023-08-02 09:50 | Outpatient (CLI) | payer MEDICARE ==
[~2023-08-02] VITALS: Ht 152.4 cm; Wt 72.7 kg
[2023-08-02 09:55] VITALS: BP 142/77; O2SAT 98
[2023-08-02] MEDS ORDERED: FILGRASTIM-SNDZ 300MCG 0.5ML SYR (ZARXIO)**SC ADMINISTRATION ONLY SC ONE (10:00)
[2023-08-05] MEDS ORDERED: FILGRASTIM-SNDZ 300MCG 0.5ML SYR (ZARXIO)**SC ADMINISTRATION ONLY SC ONE (17:30)
== END 2023-08-02 10:05 | disposition home or self-care (01) ==
LOC: M INFU 09:50
PROVIDERS: ATTEND Physician Assistant
DX: C25.9 Malignant neoplasm of pancreas, unspecified (principal)
CPT/HCPCS: 96372; Q5101

== ENCOUNTER 2023-08-05 07:24 | Outpatient (CLI) | payer MEDICARE ==
[2023-08-05 07:38] VITALS: BP 180/84; O2SAT 97
[2023-08-05] MEDS ORDERED: FILGRASTIM-SNDZ 300MCG 0.5ML SYR (ZARXIO)**SC ADMINISTRATION ONLY SC ONE (08:00)
== END 2023-08-05 08:04 ==
LOC: M INFU 07:24
PROVIDERS: ATTEND Physician Assistant
DX: C25.9 Malignant neoplasm of pancreas, unspecified (principal)
CPT/HCPCS: 96372; Q5101